=== PATIENT | male | born 1975 | race African-American/Black ===

== ENCOUNTER 2024-05-30 13:17 | Emergency (ER) | payer OTHER, SELFPAY ==
--- NOTE | ~2024-05-30 | XR_ITS ---
XR knee LT min 4V Ordering provider: Nirmal Allison History: . KNEE PAIN X 2 YRS. NKI . Comparison: None. FINDINGS: BONES: No acute fracture or dislocation. JOINT SPACES: Normal. SOFT TISSUES: Normal. IMPRESSION: No acute osseous abnormality left knee. Reviewed, dictated and finalized at location A. INE HOSTESS
[2024-05-30 13:23] VITALS: BP 126/83; PULSE 79; RESP 16; TEMP 36; O2SAT 99
[2024-05-30 13:30] VITALS: BP 126/83; PULSE 79; RESP 16; TEMP 37; O2SAT 99
--- NOTE | 2024-05-30 13:38 | ED.EXTPRO ---
HPI - Extremity Problem General Chief complaint: Extremity Problem,Nontraumatic Stated complaint: Left knee pain Time Seen by Provider: 05/30/24 13:34 History of Present Illness HPI Narrative: Patient is a 48-year-old male who presents ER with left knee pain. Ongoing for 2 years. Saw his PCP but never got the outpatient x-ray. Reports he has not had time to come here to get an x-ray but it worked out today. No known trauma. No swelling. No numbness or tingling. Works in security. Worse with standing at times. Is not taking pain medication. Related Data Allergies Allergy/AdvReac Type Severity Reaction Status Date / Time No Known Allergies Allergy Verified 05/30/24 13:19 Review of Systems Constitutional: Constitutional: Reports no additional constitutional complaints Musculoskeletal: Musculoskeletal: Reports no additional musculoskeletal complaints Neurologic: Reports system reviewed and no additional complaints, except as documented PMFSH Past Medical History Medical History (Updated 05/30/24 @ 20:57 by Jean-Claude Pantoja MD) Healthy adult male Surgical History Surgical History (Updated 05/30/24 @ 20:57 by Jean-Claude Pantoja MD) No pertinent past surgical history Exam Narrative: GENERAL: Well-appearing, well-nourished, and in no acute distress. HEAD: Normocephalic, atraumatic. EXTREMITIES: Normal range of motion. No edema. Mild tenderness over left anterior joint line of the left knee. Apley positive the internal and external stress. SKIN: Warm, dry, no rash. NEURO: Alert and oriented x3. PSYCH: Normal mood and affect. Course Course Emergency Course: Discussed using a compressive knee sleeve to help with discomfort. Recommend scheduled anti-inflammatories. He has follow-up with PCP. May have small meniscal injury. Vital Signs Vital signs: Vital Signs Temperature 96.8 F L 05/30/24 13:23 Pulse Rate 79 05/30/24 13:23 Respiratory Rate 16 05/30/24 13:23 Blood Pressure 126/83 05/30/24 13:23 Pulse Oximetry 99 05/30/24 13:23 Temperature 98.6 F 05/30/24 13:30 Pulse Rate 69 05/30/24 14:25 Respiratory Rate 17 05/30/24 14:25 Blood Pressure 123/79 05/30/24 14:25 Pulse Oximetry 100 05/30/24 14:25 MDM - Extremity (Nontraumatic) Imaging Data Radiologist's impression: ITS Impressions Knee X-Ray 05/30/24 13:51 IMPRESSION: No acute osseous abnormality left knee. Discharge Plan Discharge Clinical Impression: Knee pain Patient Disposition: Home, Self-Care Condition: Stable Instructions: Knee Pain (ED) Additional Instructions: The pain in your knee may be related to a meniscus injury. Speak with your doctor about whether you need an MRI or physical therapy. Return to the ER if you have new injury, you have a red/swollen knee, or have other concerns. Patient Language: Micronesian Prescriptions: New naproxen 375 mg tablet 375 mg PO BID Qty: 14 0RF Follow-up/Referrals: PHYSICIAN NOT ON STAFF,NONSTAFF [Non-Staff] - 1 Week
[2024-05-30 14:23] VITALS: BP 123/79; PULSE 69; RESP 17; O2SAT 100
[2024-05-30 14:25] VITALS: BP 123/79; PULSE 69; RESP 17; O2SAT 100
--- OUTSIDE RECORDS SUMMARY | 2024-05-30 14:41 | XMS_ITS | CONTINUITY OF CARE DOCUMENT ---
Author Name jean pena Address Unknown Organization [facility] Address [address] [place] [address] Phone [phone] Care Team Providers Care Packaging Clerk Name Role Phone Regina Ott MD Unavailable [phone] Regina Ott MD Unavailable [phone] INSURANCE PROVIDERS Payer name Policy type / Coverage type [facility] [employer] Medicaid 0 [id number]
--- OUTSIDE RECORDS SUMMARY | 2024-05-30 15:24 | XMS_ITS | CONTINUITY OF CARE DOCUMENT ---
Author Name jean pena Address Unknown Organization [facility] Address [address] [place] [address] Phone [phone] Care Team Providers Care Umbrella Cutter Name Role Phone Regina Ott MD Unavailable [phone] Regina Ott MD Unavailable INSURANCE PROVIDERS Payer name Policy type / Coverage type [employer] party [employer] FAMILY [employer] Medicaid 0 [id number]
== END 2024-05-30 14:27 | disposition home or self-care (01) ==
PROVIDERS: Emergency Provider Emergency Medicine
DX: M25.562 Pain in left knee (principal)
CPT/HCPCS: 73564; 99283

== ENCOUNTER 2024-08-08 11:59 | Outpatient (CLI) | payer OTHER, SELFPAY ==
--- NOTE | ~2024-08-08 | XR_ITS ---
EXAMINATION: XR chest 2V 08/08/2024 12:18 INDICATION: Atypical chest pain PROCEDURE: 2 view chest COMPARISON: No prior studies for comparison. FINDINGS: The lungs are clear. The cardiomediastinal silhouette is within normal limits. There are no pleural effusions. There is no pneumothorax suspected. IMPRESSION: 1: NO ACUTE CARDIOPULMONARY DISEASE. Reviewed, dictated and finalized at location A.
--- OUTSIDE RECORDS SUMMARY | 2024-08-08 12:04 | XMS_ITS | CONTINUITY OF CARE DOCUMENT ---
Author Name jean pena Address Unknown Organization [facility] Address [address] [place] [address] Phone [phone] Care Team Providers Care Fish Seiner Name Role Phone Tru HANDY, Regina Unavailable GENEVIEVE HANDY, MILDRED Unavailable GENEVIEVE HANDY, MILDRED Unavailable INSURANCE PROVIDERS Payer name Policy type / Coverage type [place] red libertarian ID [facility] [employer] [id number]
== END 2024-08-08 12:00 | disposition home or self-care (01) ==
PROVIDERS: PCP Internal Medicine Infectious Disease; Visit Provider Internal Medicine Infectious Disease
DX: R07.89 Other chest pain (principal)
CPT/HCPCS: 71046